=== PATIENT | female | born 1975 | race African-American/Black ===

== ENCOUNTER 2019-07-13 12:53 | Emergency (ER) | payer MEDICAID ==
[~2019-07-13] VITALS: Ht 170.2 cm; Wt 75.0 kg
[~2019-07-13 12:53] MED LIST: ALBU4TAB6
[2019-07-13] MEDS ORDERED: KETOROLAC 30MG/ML VIAL IV STA (17:03)
[2019-07-13] MEDS ORDERED: SODIUM CHLORIDE 0.9% 1,000 ML IV ONE (17:03)
[2019-07-13] MEDS ORDERED: ONDANSETRON HCL 4MG/2ML INJ IV STA (17:03)
[2019-07-13 17:15] LABS: BASOPHILS % 0.2 % (0.0-2.0); HEMATOCRIT. 41.7 % (36.0-48.0); HEMOGLOBIN. 14.5 g/dL (12.0-16.0); LYMPHOCYTES % 11.4 % (20.0-50.0); MEAN CORPUSCULAR HEMOGLOBIN 34.4 pg (28.0-32.0); MEAN CORPUSCULAR VOLUME 98.9 fL (81.0-99.0); MEAN PLATELET VOLUME 7.8 fl (7.4-10.4); MONOCYTES % 6.8 % (2.0-8.0); NEUTROPHILS % 81.6 % (40.0-76.0); PLATELET 260 x1000/uL (130-400); RED BLOOD CELL COUNT 4.22 mill/uL (4.2-5.4); RED CELL DISTRIBUTION WIDTH 12.5 % (11.6-14.6)
[2019-07-13 17:18] LABS: CHLORIDE 108 mEq/L (98-107)
[2019-07-13 20:29] LABS: CLARITY URINE CLOUDY (CLEAR); COLOR URINE YELLOW (YELLOW); KETONES URINE NEGATIVE (NEGATIVE); LEUKOCYTE ESTERASE URINE TRACE (NEGATIVE); NITRITE URINE NEGATIVE (NEGATIVE); OCCULT BLOOD URINE NEGATIVE (NEGATIVE); PROTEIN URINE TRACE (NEGATIVE); SPECIFIC GRAVITY URINE 1.014 (1.005-1.030); UROBILINOGEN URINE 0.2 E.U./dL (0.2-1.0)
[2019-07-13 22:20] VITALS: BP 115/79
== END 2019-07-13 22:20 | disposition home or self-care (01) ==
LOC: ER 12:53
DX: R10.9 Unspecified abdominal pain (principal); N39.0 Urinary tract infection, site not specified; J45.909 Unspecified asthma, uncomplicated; I10 Essential (primary) hypertension; F17.200 Nicotine dependence, unspecified, uncomplicated; Z91.011 Allergy to milk products; Z91.018 Allergy to other foods
CPT/HCPCS: 36415; 74018; 80053; 81003; 81025; 83690; 85025; 96374; 96375; 99284; J1885; J2405; J7030; Z7610